=== PATIENT | female | born 2000 | race Two or more races ===

== ENCOUNTER 2022-08-09 17:54 | Emergency (ER) | payer SELFPAY ==
[~2022-08-09] VITALS: Ht 165.1 cm; Wt 120.2 kg
[2022-08-09 18:07] VITALS: BP 138/70
--- NOTE | 2022-08-09 18:07 | NUR ---
BIB FRIEND C/O PAINFUL FREQUENT URINATION X3 DAYS, PAIN 8
--- NOTE | 2022-08-09 18:25 | NUR ---
URINE COLLECTED AND SENT
[2022-08-09 19:21] LABS: BILIRUBIN,URINE NEGATIVE (NEGATIVE); COLOR,URINE YELLOW (YELLOW); LEUKOCYTE ESTERASE ,URINE TRACE (NEGATIVE); NITRITE, URINE POSITIVE (NEGATIVE); PH,URINE 5.5 (5.0-8.0); PROTEIN,URINE NEGATIVE (NEGATIVE); UGLUCOSE NEGATIVE (NEGATIVE); UROBILINOGEN,URINE 0.2 EU/dL (0.2)
[2022-08-09] MEDS ORDERED: NITR100C PO (19:27)
[2022-08-09 19:52] LABS: BACTERIA,URINE Many /HPF (None Seen); SQUAMOUS EPITHELIAL CELL,UR Moderate /HPF (None Seen); WBC,URINE 0-2 /HPF (0-3)
--- NOTE | 2022-08-09 19:52 | NUR ---
Patient discharged to home in stable condition. Written and verbal after care instructions given. Patient verbalizes understanding of instruction.
[2022-08-09 19:54] LABS: URIC ACID CRYSTALS,URINE Moderate /HPF (None Seen)
== END 2022-08-09 20:44 | disposition home or self-care (01) ==
LOC: ER 17:59
DX: R30.0 Dysuria (principal); Z79.899 Other long term (current) drug therapy
CPT/HCPCS: 81001; 84703-TC; 87086-TC